=== PATIENT | male | born 1985 | race Caucasian/White ===

== ENCOUNTER 2016-05-05 10:15 | Emergency (ER) | payer OTHER ==
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
[2016-05-05] MEDS ORDERED: LIDOCAINE 5% (700 MG) TRANSDERMAL ADH..PATCH TP ONE (10:51)
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
[2016-05-05 11:37] VITALS: BP 132/81
== END 2016-05-05 11:26 | disposition home or self-care (01) ==
LOC: ER 10:15
DX: M79.1 Myalgia (principal); M54.9 Dorsalgia, unspecified; M54.2 Cervicalgia; V49.40XA Driver injured in collision with unspecified motor vehicles in traffic accident, initial encounter; Y92.481 Parking lot as the place of occurrence of the external cause
CPT/HCPCS: 99283

== ENCOUNTER 2016-07-21 11:02 | Emergency (ER) | payer OTHER ==
--- NOTE | 2016-07-21 13:33 | ER Document Report ---
ED General - General Mode of Arrival: Ambulatory Information source: Patient TRAVEL OUTSIDE OF THE [place] IN LAST 30 DAYS: No <AMBER HARRIS - Last Filed: 07/21/16 15:23> <ESTRELLA VELAZQUEZ - Last Filed: 07/31/16 11:09> - General Chief Complaint: Diarrhea Stated Complaint: WEAKNESS/ABDOMINAL PAIN Time Seen by Provider: 07/21/16 13:26 Notes: Patient is a 31-year-old male who presents to the emergency department today with complaints of feeling dehydrated. 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 Patient states he has consumed 1 Pedialyte and 3 Gatorades over the last 2 days. States he does not drink much water at work. Patient also complains of a headache which he states resolved in triage after eating a tuna sub. (AMBER HARRIS) - Related Data Allergies/Adverse Reactions: No Known Allergies Allergy (Verified 07/21/16 11:08) Past Medical History - General Information source: Patient - Social History Smoking Status: Current Every Day Smoker Cigarette use (# per day): Yes Frequency of alcohol use: None Drug Abuse: None Lives with: Family Family History: Reviewed & Not Pertinent Patient has suicidal ideation: No Patient has homicidal ideation: No Pulmonary Medical History: Reports: Hx Asthma GI Medical History: Reports: Hx Gastritis Surgical Hx: Negative - Immunizations Hx Diphtheria, Pertussis, Tetanus Vaccination: Yes <AMBER HARRIS - Last Filed: 07/21/16 15:23> Review of Systems - Review of Systems Constitutional: See HPI, Other - "Hot but not sweating", possible dehydration EENT: No symptoms reported Cardiovascular: No symptoms reported Respiratory: No symptoms reported Gastrointestinal: See HPI, Diarrhea. denies: Vomiting Genitourinary: No symptoms reported Male Genitourinary: No symptoms reported Musculoskeletal: No symptoms reported Skin: No symptoms reported Hematologic/Lymphatic: No symptoms reported Neurological/Psychological: See HPI, Headaches - resolved after eating tuna sub -: Yes All other systems reviewed and negative <AMBER HARRIS - Last Filed: 07/21/16 15:23> Physical Exam <AMBER HARRIS - Last Filed: 07/21/16 15:23> <ESTRELLA VELAZQUEZ - Last Filed: 07/31/16 11:09> - Vital signs Vitals: Pulse Resp BP Pulse Ox 63 16 120/65 99 07/21/16 15:07 07/21/16 15:07 07/21/16 15:07 07/21/16 15:07 - Notes Notes: Physical Exam: General: Alert, appears well. HEENT: Normocephalic. Atraumatic. PERRL. Extraocular movements intact. Oropharynx clear. Neck: Supple. Non-tender. Respiratory: No respiratory distress. Clear and equal breath sounds bilaterally. Cardiovascular: Regular rate and rhythm. Abdominal: Normal Inspection. Non-tender. No distension. Normal Bowel Sounds. Back: Non-tender. No deformity or step off. Extremities: Moves all four extremities. Upper extremities: Normal inspection. Normal ROM. Lower extremities: Normal inspection. No edema. Normal ROM. Neurological: Normal cognition. AAOx4. Normal speech. Psychological: Normal affect. Normal Mood. Skin: Warm. Dry. Normal color. (AMBER HARRIS) Course - Laboratory Result Diagrams: 07/21/16 13:40 <AMBER HARRIS - Last Filed: 07/21/16 15:23> - Laboratory Result Diagrams: 07/21/16 13:40 <ESTRELLA VELAZQUEZ - Last Filed: 07/31/16 11:09> - Re-evaluation Re-evalutation: 07/21/16 14:39 Presents emergency department chief complaint of heat is bothering him. He started new job where he works outside. He has not been drinking enough water he feels tired and fatigued no headache blurred vision double vision syncope chest pain or shortness of breath well-appearing nontoxic in no acute distress not acutely dehydrated tolerating oral fluids electrolytes are fine. He can be discharged home work excuse for today back to work tomorrow drink plenty of fluids 16-18 glasses of water a day and discussed building up a tolerance level for him. Again the family doctor follow-up and discussions regarding reasons for ED return sooner (ESTRELLA VELAZQUEZ) - Vital Signs Vital signs: Temp Pulse Resp BP Pulse Ox 63 16 120/65 99 07/21/16 15:07 07/21/16 15:07 07/21/16 15:07 07/21/16 15:07 - Laboratory Laboratory results interpreted by me: 07/21/16 13:40 Carbon Dioxide 31 H Discharge <AMBER HARRIS - Last Filed: 07/21/16 15:23> <ESTRELLA VELAZQUEZ - Last Filed: 07/31/16 11:09> - Discharge Clinical Impression: heat exhaustion Condition: Stable Disposition: HOME, SELF-CARE Additional Instructions: Heat Exhaustion You have had an episode of heat exhaustion. The body overheats when sweating fails to keep the temperature down due to high humidity, exercise, or dehydration. Typical symptoms may include muscle cramps, dizziness, nausea, and even chilling. You should rest and drink plenty of fluids. Do not resume any activities until you feel fully back to normal. To prevent a recurrence, avoid working in the heat. Always drink plenty of fluids when the weather is hot, particularly if you will be exercising. Use extra caution when the humidity is high. If you feel symptoms of heat illness, douse yourself with cold water and rest in the shade. Call the doctor if you develop confusion, repeated vomiting, severe headache, severe muscle spasms, fever, chest pain or shortness of breath. Forms: Return to Work Referrals: [facility] [Provider Group] - Follow up in 3-5 days Scribe Attestation: 07/21/16 14:39 I personally performed the services described in the documentation, reviewed and edited the documentation which was dictated to my scribe in my presence, and it accurately records my words and actions. (ESTRELLA VELAZQUEZ) Scribe Documentation - Scribe Written by Humphrey:: Humphrey Strong, 07/21/16 1528 acting as scribe for :: Orville <AMBER HARRIS - Last Filed: 07/21/16 15:23>
[2016-07-21 14:08] LABS: ANION GAP 13 (5-19); BLOOD UREA NITROGEN 17 mg/dL (7-20); CALCIUM 9.7 mg/dL (8.4-10.2); CARBON DIOXIDE 31 mmol/L (22-30); CHLORIDE 99 mmol/L (98-107); CREATININE RESULT 0.97 mg/dL (0.52-1.25); GLUCOSE 84 mg/dL (75-110); POTASSIUM 4.1 mmol/L (3.6-5.0); SODIUM 143.1 mmol/L (137-145)
[2016-07-21 15:19] VITALS: BP 120/65
== END 2016-07-21 15:07 | disposition home or self-care (01) ==
LOC: ER 11:02
DX: T67.5XXA Heat exhaustion, unspecified, initial encounter (principal); R10.9 Unspecified abdominal pain; R19.7 Diarrhea, unspecified; R53.1 Weakness; X30.XXXA Exposure to excessive natural heat, initial encounter; Y99.0 Civilian activity done for income or pay; F17.210 Nicotine dependence, cigarettes, uncomplicated
CPT/HCPCS: 36415; 80048; 99284

== ENCOUNTER 2017-08-09 16:03 | Emergency (ER) | payer SELFPAY ==
[2017-08-09] MEDS ORDERED: DIPH/PERTUSS(ACELL)/TETANUS VAC/PF 0.5 ML SYR (>=10YO) IM ONE (16:50)
[2017-08-09] MEDS ORDERED: OXYCODONE-ACETAMINOPHEN 5-325 MG TABLET PO ONE (16:50)
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
--- NOTE | 2017-08-09 17:30 | RADIOLOGY REPORT (SQ) ---
EXAM DESCRIPTION: FINGER RIGHT COMPLETED DATE/TIME: 08/09/2017 5:18 pm REASON FOR STUDY: right 3rd finger crush injury COMPARISON: None. NUMBER OF VIEWS: Three views. TECHNIQUE: AP, lateral, and oblique images acquired of the right third finger. LIMITATIONS: None. FINDINGS: MINERALIZATION: Normal. BONES: No acute fracture or dislocation. No worrisome bone lesions. SOFT TISSUES: Soft tissue swelling. No foreign body. OTHER: No other significant finding. IMPRESSION: SOFT TISSUE SWELLING WITHOUT FRACTURE. COMMENT: SITE OF TRAUMA/COMPLAINT MARKED/STAMP COMPLETED: YES. TECHNICAL DOCUMENTATION: JOB ID: [id number] [employer]- All Rights Reserved Reading location - IP/workstation name: [email or web address]
[2017-08-09 17:55] VITALS: BP 114/70
== END 2017-08-09 17:58 | disposition home or self-care (01) ==
LOC: ER 16:03 → MERGE 16:03 → ER 17:58
DX: S67.192A Crushing injury of right middle finger, initial encounter (principal); S61.212A Laceration without foreign body of right middle finger without damage to nail, initial encounter; W22.8XXA Striking against or struck by other objects, initial encounter; F17.200 Nicotine dependence, unspecified, uncomplicated
CPT/HCPCS: 90471; 90715; 99283

== ENCOUNTER 2017-08-15 10:27 | Emergency (ER) | payer OTHER ==
[2017-08-15] MEDS ORDERED: KETOROLAC TROMETHAMINE INJ/PF 30 MG/1 ML SDV IV ONE (10:48)
[2017-08-15] MEDS ORDERED: METOCLOPRAMIDE HCL INJ/PF 10 MG/2 ML SDV IV ONE (10:48)
[2017-08-15] MEDS ORDERED: MORPHINE SULFATE 10 MG/ML INJ IV ONE ×2 (10:48→12:04)
[2017-08-15] MEDS ORDERED: DIPHENHYDRAMINE HCL 50 MG/ML VIAL IV ONE (10:50)
[2017-08-15 11:18] LABS: ABSOLUTE BASOPHILS # (AUTO) 0.1 10^3/uL (0.0-0.2); ABSOLUTE EOSINOPHILS # (AUTO) 0.3 10^3/uL (0.0-0.6); ABSOLUTE LYMPHOCYTES (AUTO) 1.8 10^3/uL (0.5-4.7); ABSOLUTE MONOCYTES (AUTO) 0.8 10^3/uL (0.1-1.4); ABSOLUTE NEUT (AUTO) 7.4 10^3/uL (1.7-8.2); BASOPHILS % (AUTO) 0.6 % (0-2); EOSINOPHILS % (AUTO) 2.6 % (0-6); HEMATOCRIT 46.7 % (37.9-51.0); HEMOGLOBIN 15.8 g/dL (13.5-17.0); LYMPHOCYTES % (AUTO) 17.3 % (13-45); MEAN CORPUSCULAR HEMOGLOBIN 28.4 pg (27.0-33.4); MEAN CORPUSCULAR HGB CONC 33.8 g/dL (32.0-36.0); MEAN CORPUSCULAR VOLUME 84 fl (80-97); MONOCYTES % (AUTO) 8.1 % (3-13); PLATELET COUNT 209 10^3/uL (150-450); RED BLOOD COUNT 5.56 10^6/uL (4.35-5.55); RED CELL DISTRIBUTION WIDTH 14.3 % (11.5-14.0); SEGMENTED NEUTROPHILS % (AUTO) 71.4 % (42-78); TOTAL CELLS COUNTED % (AUTO) 100 %; WHITE BLOOD COUNT 10.3 10^3/uL (4.0-10.5)
--- NOTE | 2017-08-15 11:38 | RADIOLOGY REPORT (SQ) ---
EXAM DESCRIPTION: CT LTD RENAL STONE PROTOCOL ON COMPLETED DATE/TIME: 08/15/2017 11:26 am REASON FOR STUDY: right flank COMPARISON: Abdominal ultrasound 02/21/2015 TECHNIQUE: CT scan of the abdomen and pelvis performed without intravenous or oral contrast. Images reviewed with lung, soft tissue, and bone windows. Reconstructed coronal and sagittal MPR images revi ewed. All images stored on PACS. All CT scanners at this facility use dose modulation, iterative reconstruction, and/or weight based d osing when appropriate to reduce radiation dose to as low as reasonably achievable (ALARA). [facility]: Dose Right [facility]: CareDose [facility]: Dose Right [facility]: Teradose 4D [facility]: Smart F[employer]fix RADIATION DOSE: CT Rad equipment meets quality standard of care and radiation dose reduction techniq ues were employed. CTDIvol: 5.5 mGy. DLP: 310 mGy-cm.mGy. LIMITATIONS: None. FINDINGS: On the right side, a 2 mm distal right ureteral calculus is present at the ureteral orific e into the bladder. This is best shown on axial image 78 and coronal reconstruction image 35. Very mild right hydronephrosis and hydroureter. No other right-sided renal or ureteral stones. No right renal cysts or masses. LOWER CHEST: No significant findings. No nodules or infiltrates. NON-CONTRASTED LIVER, SPLEEN, ADRENALS: Evaluation limited by lack of IV contrast. No identified sign ificant masses. PANCREAS: No masses. No peripancreatic inflammatory changes. GALLBLADDER: No identified stones by CT criteria. No inflammatory changes to suggest cholecystitis. RIGHT KIDNEY AND URETER: As above LEFT KIDNEY AND URETER: No suspicious masses. Assessment limited by lack of IV contrast. Tiny left lower pole intrarenal nonobstructive less than 2 mm stone coronal image 38. No hydronephrosis or hy droureter. AORTA AND RETROPERITONEUM: No aneurysm. No retroperitoneal masses or adenopathy. BOWEL AND PERITONEAL CAVITY: No obvious masses or inflammatory changes. No free fluid. APPENDIX: Normal. PELVIS, BLADDER, AND ABDOMINAL WALL:No abnormal masses. No free fluid. 2 mm distal right ureteral st one at the ureterovesical junction. Bladder otherwise unremarkable. BONES: No significant findings. OTHER: No other significant finding. IMPRESSION: 2 mm distal right ureteral stone with minimal right hydronephrosis and hydroureter COMMENT: Quality ID # [id number]: Final reports with documentation of one or more dose reduction techniques (e.g., Automated exposure control, adjustment of the mA and/or kV according to patient size, use of iterative reconstruction technique) TECHNICAL DOCUMENTATION: JOB ID: [id number] + [employer]- All Rights Reserved Reading location - IP/workstation name: [email or web address] / [email or web address]
[2017-08-15 11:41] LABS: ANION GAP 12 (5-19); BLOOD UREA NITROGEN 18 mg/dL (7-20); CALCIUM 9.7 mg/dL (8.4-10.2); CARBON DIOXIDE 26 mmol/L (22-30); CHLORIDE 108 mmol/L (98-107); GLUCOSE 119 mg/dL (75-110); POTASSIUM 4.4 mmol/L (3.6-5.0); SODIUM 146.1 mmol/L (137-145)
[2017-08-15] MEDS: NORMAL SALINE 1000 ML 1,000 ML IV PRN ×2 (11:42→12:46)
[2017-08-15 12:05] LABS: AMORPHOUS SEDIMENT,URINE TRACE /HPF; APPEARANCE,URINE TURBID; BILIRUBIN,URINE NEGATIVE (NEGATIVE); COLOR,URINE YELLOW; GLUCOSE, URINE NEGATIVE (NEGATIVE); KETONES,URINE NEGATIVE (NEGATIVE); LEUKOCYTE ESTERASE,URINE NEGATIVE (NEGATIVE); NITRITE,URINE NEGATIVE (NEGATIVE); PROTEIN,URINE NEGATIVE (NEGATIVE); URINE SPECIFIC GRAVITY 1.027; UROBILINOGEN,URINE NEGATIVE mg/dL (<2.0)
[2017-08-15] MEDS ORDERED: TAMSULOSIN HCL 0.4 MG CAP.SR.24H PO ONE (12:11)
--- NOTE | 2017-08-15 12:21 | ER Document Report ---
ED General - General Chief Complaint: Flank Pain Stated Complaint: FLANK PAIN Time Seen by Provider: 08/15/17 10:44 TRAVEL OUTSIDE OF THE [place] IN LAST 30 DAYS: No - HPI Patient complains to provider of: Right flank pain Notes: Patient coming with acute onset of right flank pain. Patient has no history of kidney stones states that he was watching his when the pain became excruciating. Patient states nausea vomiting. Patient upon evaluation is rolling on room and had to get a comfortable position. Denies any fevers chills diarrhea at this time - Related Data Allergies/Adverse Reactions: No Known Allergies Allergy (Verified 08/15/17 10:30) Past Medical History - Social History Smoking Status: Current Every Day Smoker Chew tobacco use (# tins/day): No Frequency of alcohol use: None Drug Abuse: Marijuana Family History: Reviewed & Not Pertinent Patient has suicidal ideation: No Patient has homicidal ideation: No Pulmonary Medical History: Reports: Hx Asthma Renal/ Medical History: Denies: Hx Peritoneal Dialysis GI Medical History: Reports: Hx Gastritis - Immunizations Hx Diphtheria, Pertussis, Tetanus Vaccination: Yes Review of Systems - Review of Systems Constitutional: No symptoms reported EENT: No symptoms reported Cardiovascular: No symptoms reported Respiratory: No symptoms reported Gastrointestinal: No symptoms reported Genitourinary: Flank pain Male Genitourinary: No symptoms reported Musculoskeletal: No symptoms reported Skin: No symptoms reported Hematologic/Lymphatic: No symptoms reported Neurological/Psychological: No symptoms reported -: Yes All other systems reviewed and negative Physical Exam - Vital signs Vitals: Temp Pulse Resp BP Pulse Ox 98.6 F 50 L 26 H 129/83 H 99 08/15/17 10:32 08/15/17 10:32 08/15/17 10:32 08/15/17 10:32 08/15/17 10:32 Interpretation: Normal - General General appearance: Appears well, Alert - HEENT Head: Normocephalic, Atraumatic Eyes: Normal Pupils: PERRL - Respiratory Respiratory status: No respiratory distress Chest status: Nontender Breath sounds: Normal Chest palpation: Normal - Cardiovascular Rhythm: Regular Heart sounds: Normal auscultation Murmur: No - Abdominal Inspection: Normal Distension: No distension Bowel sounds: Normal Tenderness: Nontender Organomegaly: No organomegaly - Back Back: Normal, Nontender, CVA tenderness - Right - Extremities General upper extremity: Normal inspection, Nontender, Normal color, Normal ROM , Normal temperature General lower extremity: Normal inspection, Nontender, Normal color, Normal ROM , Normal temperature, Normal weight bearing. No: Fredi's sign - Neurological Neuro grossly intact: Yes Cognition: Normal Orientation: AAOx4 Mo Coma Scale Eye Opening: Spontaneous Mo Coma Scale Verbal: Oriented Mo Coma Scale Motor: Obeys Commands [place] Coma Scale Total: 15 Speech: Normal Motor strength normal: LUE, RUE, LLE, RLE Sensory: Normal - Psychological Associated symptoms: Normal affect, Normal mood - Skin Skin Temperature: Warm Skin Moisture: Dry Skin Color: Normal Course - Re-evaluation Re-evalutation: 08/15/17 12:15 Patient coming in for evaluation of right flank pain and was found to have a kidney stone 2 mm at the UVJ junction on the right side. Otherwise patient upon reevaluation resting in youth blankets still states he is in slight amount of pain. No dose of morphine will be given. Treatment for kidney stones was reviewed with the patient at bedside. Pictures of the CT scan showing the kidney stone or surgery. Patient will be discharged home - Vital Signs Vital signs: Temp Pulse Resp BP Pulse Ox 98.6 F 50 L 26 H 129/83 H 99 08/15/17 10:32 08/15/17 10:32 08/15/17 10:32 08/15/17 10:32 08/15/17 10:32 - Laboratory Result Diagrams: 08/15/17 10:55 08/15/17 10:55 Laboratory results interpreted by me: 08/15/17 08/15/17 10:55 10:55 RBC 5.56 H RDW 14.3 H Sodium 146.1 H Chloride 108 H Glucose 119 H Discharge - Discharge Clinical Impression: Right kidney stone Condition: Good Instructions: Kidney Stone ([facility]), Oral Narcotic Medication ([facility]), Flomax ([facility]) Additional Instructions: Follow-up with your primary care physician for further evaluation. Your CAT scan today shows a 2 mm kidney stone has causing her pain. Until he passed the stone he can expect to have a slight amount of pain. I highly recommend taking the Motrin prescribed for moderate pain I would also recommend taking 650 mg to 1000 mg of Tylenol every time he take the Motrin Take the oxycodone prescribed for severe pain Zofran for nausea Flomax possibly may aid in passage of the kidney stone however your stone is very small only 2 mm Flomax may be expensive depending on your insurance you do not need Flomax to pass your kidney stone. Please make sure you are drinking plenty of fluids to stay well-hydrated. Prescriptions: Ondansetron [Zofran Odt 4 mg Tablet] 4 mg PO Q4HP PRN #30 tab.rapdis PRN Reason: Ibuprofen [Motrin 600 mg Tablet] 600 mg PO Q8HP PRN #90 tablet PRN Reason: Oxycodone HCl 5 mg PO Q6 #30 tablet Tamsulosin HCl [Flomax 0.4 mg Cap.sr] 0.4 mg PO DAILY #7 cap.sr.24h Forms: Return to Work
[2017-08-15 13:29] VITALS: BP 112/66
== END 2017-08-15 13:30 | disposition home or self-care (01) ==
LOC: ER 10:27
DX: N13.2 Hydronephrosis with renal and ureteral calculous obstruction (principal); R11.2 Nausea with vomiting, unspecified; F17.200 Nicotine dependence, unspecified, uncomplicated; F12.10 Cannabis abuse, uncomplicated; J45.909 Unspecified asthma, uncomplicated
CPT/HCPCS: 96376; 99284; 96361; 96374; 96375; 36415; 85025; 80048; 81001; 76380; J1200; J1885; J2765; J2270; J7030

== ENCOUNTER 2018-07-16 16:52 | Emergency (ER) | payer SELFPAY ==
[2018-07-16 17:30] VITALS: BP 106/67
[2018-07-16] MEDS ORDERED: IBUPROFEN 800 MG TABLET PO ONE (18:00)
--- NOTE | 2018-07-16 18:00 | ER Document Report ---
HPI - HPI Time Seen by Provider: 07/16/18 17:29 Pain Level: 4 Context: Patient is a 33-year-old male presents to the emergency department with a chief complaint of a toothache for the past 2 days. He states that his tooth #16 has broken and he is able to pull out little slivers of his tooth. He has not seen a dentist and a long time. He states that he has had some sweating, lightheadedness, nausea, and cold sweats at home. He does admit to having a cough for the past week and a half. He is a current everyday smoker. - CONSTITUTIONAL Constitutional: DENIES: Fever, Chills - EENT EENT: DENIES: Sore Throat, Ear Pain, Eye problems - NEURO Neurology: DENIES: Headache, Weakness, Vision blurred, Dizzinesss / Vertigo - CARDIOVASCULAR Cardiovascular: DENIES: Chest pain - RESPIRATORY Respiratory: DENIES: Trouble Breathing, Coughing - GASTROINTESTINAL Gastrointestinal: DENIES: Abdominal Pain, Black / Bloody Stools - URINARY Urinary: DENIES: Dysuria, Urgency, Frequency - MUSCULOSKELETAL Musculoskeletal: DENIES: Extremity pain Past Medical History - Social History Smoking Status: Smoker,Current Status Unk Family History: Reviewed & Not Pertinent Patient has suicidal ideation: No Patient has homicidal ideation: No Pulmonary Medical History: Reports: Hx Asthma Renal/ Medical History: Denies: Hx Peritoneal Dialysis GI Medical History: Reports: Hx Gastritis - Immunizations Hx Diphtheria, Pertussis, Tetanus Vaccination: Yes Vertical Provider Document - CONSTITUTIONAL Agree With Documented VS: Yes Exam Limitations: No Limitations - INFECTION CONTROL TRAVEL OUTSIDE OF THE [place] IN LAST 30 DAYS: No - HEENT HEENT: Atraumatic, Normocephalic, PERRLA. negative: Pharyngeal Exudate, Pharyngeal Tenderness, Pharyngeal Erythema, Tympanic Membrane Red, Tympanic Membrane Bulging Mouth Diagram: 1 - Broken tooth noted - NECK Neck: Normal Inspection, Supple - RESPIRATORY Respiratory: Breath Sounds Normal, No Respiratory Distress, Rhonchi - Right lower lobe, Wheezing - Right lower lobe - CARDIOVASCULAR Cardiovascular: Regular Rate, Regular Rhythm Pulses: Normal: Radial - MUSCULOSKELETAL/EXTREMETIES Musculoskeletal/Extremeties: FROM, Non-Tender, No Edema - NEURO Level of Consciousness: Awake, Alert, Appropriate Motor/Sensory: No Motor Deficit, No Sensory Deficit - DERM Integumentary: Warm, Dry, No Rash Course - Re-evaluation Re-evalutation: 07/16/18 18:05 The patient does have coarse breath sounds noted to his right lower lobe and could possibly indicate pneumonia. He will be sent for chest x-ray. Patient's physical exam and history is most consistent with a infected tooth. Patient is able to swallow, no facial swelling noted, airways pain, vital signs are normal. I do not suspect Chirag's angina, peritonsilar abscess, or airway obstruction. The patient will be started on oral antibiotics. I have given the patient education on their antibiotics. Patient was given instructions to follow-up with a dentist this week. 07/16/18 19:20 Patient's chest x-ray is negative for any acute findings. This rules out pneumonia. I will give him an albuterol inhaler to go home with. I do not suspect patient is having a COPD exacerbation. He has been smoking since he was 16 years old, but has not been diagnosed with COPD. Verbal discharge i nstructions were given to the patient. They verbalized understanding. They are stable for discharge.Return precautions were given. Verbal discharge instructions were given. Patient verbalized understanding. Patient is stable for discharge. - Vital Signs Vital signs: Temp Pulse Resp BP Pulse Ox 98.2 F 94 16 106/67 96 07/16/18 17:18 07/16/18 17:18 07/16/18 17:18 07/16/18 17:18 07/16/18 17:18 Discharge - Discharge Clinical Impression: Toothache, Cough Condition: Stable Disposition: HOME, SELF-CARE Instructions: Penicillin V K ([facility]), Toothache ([facility]) Additional Instructions: You have been seen in the emergency department for a toothache. You may take ibuprofen 600 mg and Tylenol 1000 mg every 6 hours as needed for the pain. You have also been given topical lidocaine. Placed that to the affected tooth as needed to help with pain. You have also been prescribed antibiotics. Please take the antibiotics as prescribed, even if you start to feel better. If you develop a fever greater than 100.4 F, or have any symptoms that are worrisome to you, please return to the emergency department. Please follow-up with a dentist this week in regards to your visit. Is follow-up with [facility]. [facility]-[phone] You were also seen for a cough. Your x-ray is normal. Please continue to quit smoking. You have also been given an albuterol inhaler. Please take 1 to 2 puffs every 4-6 hours as needed for any shortness of breath. Prescriptions: Penicillin V Potassium [Penicillin Vk 500 mg Tablet] 500 mg PO BID #20 tablet Forms: Return to Work
[2018-07-16] MEDS ORDERED: LIDOCAINE 2% VISCOUS SOLN 20 ML UDCUP PO ONE (18:02)
--- NOTE | 2018-07-16 18:44 | RADIOLOGY REPORT (SQ) ---
EXAM DESCRIPTION: CHEST 2 VIEWS COMPLETED DATE/TIME: 07/16/2018 6:23 pm REASON FOR STUDY: cough x 1 1/2 weeks COMPARISON: 02/21/2015 EXAM PARAMETERS: NUMBER OF VIEWS: two views TECHNIQUE: Digital Frontal and Lateral radiographic views of the chest acquired. RADIATION DOSE: NA LIMITATIONS: none FINDINGS: LUNGS AND PLEURA: No opacities, masses or pneumothorax. No pleural effusion. MEDIASTINUM AND HILAR STRUCTURES: No masses or contour abnormalities. HEART AND VASCULAR STRUCTURES: Heart normal size. No evidence for failure. BONES: No acute findings. HARDWARE: None in the chest. OTHER: No other significant finding. IMPRESSION: NO ACUTE RADIOGRAPHIC FINDING IN THE CHEST. TECHNICAL DOCUMENTATION: JOB ID: [id number] [employer]- All Rights Reserved Reading location - IP/workstation name: [email or web address]
[2018-07-16] MEDS ORDERED: ALBUTEROL SULFATE HFA (90 MCG/PUFF) 8 GM MDI (1 MDI/ER DISP) IH PRN (19:20)
== END 2018-07-16 19:39 | disposition home or self-care (01) ==
LOC: ER 16:52
DX: K08.9 Disorder of teeth and supporting structures, unspecified (principal); R05 Cough; R61 Generalized hyperhidrosis; F17.200 Nicotine dependence, unspecified, uncomplicated
CPT/HCPCS: 99283; 71046; J3490 ×2

== ENCOUNTER 2019-05-16 09:49 | Emergency (ER) | payer SELFPAY ==
[2019-05-16] MEDS ORDERED: MUPIROCIN 2% OINTMENT 22 GM TP ONE (10:36)
[2019-05-16] MEDS ORDERED: HYDROCORTISONE 1% CREAM 28.35 GM TP ONE (10:36)
--- NOTE | 2019-05-16 10:40 | ER Document Report ---
HPI - HPI Time Seen by Provider: 05/16/19 10:29 Pain Level: 3 Notes: Patient is a 34-year-old male presenting to the emergency department chief complaint of dry flaking skin to his bilateral hands. 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 Patient reports the rash is itchy and burning. He states he is tried multiple [id number] creams and lotions for this with minimal relief. - CONSTITUTIONAL Constitutional: DENIES: Fever, Chills - MUSCULOSKELETAL Musculoskeletal: REPORTS: Extremity pain Past Medical History - General Information source: Patient - Social History Smoking Status: Never Smoker Frequency of alcohol use: None Drug Abuse: None Family History: Reviewed & Not Pertinent Patient has suicidal ideation: No Patient has homicidal ideation: No Pulmonary Medical History: Reports: Hx Asthma Renal/ Medical History: Denies: Hx Peritoneal Dialysis GI Medical History: Reports: Hx Gastritis - Immunizations Hx Diphtheria, Pertussis, Tetanus Vaccination: Yes Vertical Provider Document - CONSTITUTIONAL Notes: PHYSICAL EXAMINATION: GENERAL: Well-appearing, well-nourished and in no acute distress. HEAD: Atraumatic, normocephalic. EYES: Pupils equal round extraocular movements intact, conjunctiva are normal. ENT: Nares patent NECK: Normal range of motion LUNGS: No respiratory distress Musculoskeletal: Normal range of motion NEUROLOGICAL: Normal speech, normal gait. PSYCH: Normal mood, normal affect. SKIN: Dry flaky skin noted between fingers, small areas of erythema with scabbing noted. No induration or fluctuance. - INFECTION CONTROL TRAVEL OUTSIDE OF THE [place] IN LAST 30 DAYS: No Course - Re-evaluation Re-evalutation: Exam most consistent with eczema. Patient will be started on appropriate medications. - Vital Signs Vital signs: Temp Pulse Resp BP Pulse Ox 97.8 F 70 18 120/73 97 05/16/19 10:15 05/16/19 10:15 05/16/19 10:15 05/16/19 10:15 05/16/19 10:15 Discharge - Discharge Clinical Impression: Eczema Qualifiers: Eczema type: unspecified Qualified Code(s): L30.9 - Dermatitis, unspecified Condition: Stable Disposition: HOME, SELF-CARE Additional Instructions: PLEASE TAKE MEDICATIONS PRESCRIBED. APPLY TO THE HAND THREE TIME DAILY. KEEP CLEAN AND DRY. Prescriptions: Mupirocin [Bactroban 2% Ointment 22 gm] 1 applic TP TID #1 tube Hydrocortisone [Hydrocortisone 1% Ointment] 1 applic TP TID #1 tube
[2019-05-16 11:22] VITALS: BP 123/75
== END 2019-05-16 11:19 | disposition home or self-care (01) ==
LOC: ER 09:49
DX: L30.9 Dermatitis, unspecified (principal); R21 Rash and other nonspecific skin eruption; J45.909 Unspecified asthma, uncomplicated; M79.641 Pain in right hand; M79.642 Pain in left hand
CPT/HCPCS: 99283; J3490 ×2

== ENCOUNTER → 2019-09-04 | Outpatient (CLI) | payer SELFPAY ==
[2019-09-04 12:53] VITALS: BP 139/57
--- NOTE | 2019-09-04 12:53 | ER [facility] ASSESSMENT REPORT ---
Intake - In the Last 14 days Have you traveled outside [place]?: No Have you been in close contact with someone CONFIRMED: No Worked in Healthcare?: No - Symptoms Subjective Fever([place] feverish): Yes Chills: Yes Muscule Aches: Yes Runny Nose: Yes Shortness of breath: Yes Nausea or Vomiting: Yes Headache: Yes Abdominal Pain: Yes Diarrhea(3 or more loose stools in last 24 hours): Yes - Do you have any of the following Chronic lung disease: Asthma or emphysema or COPD: Yes Cystic Fibrosis: No Diabetes: No High Blood Pressure: No Cardiovascular Disease: No Chronic Kidney Disease: No Chronic Liver Disease: No Chronic blood disorder like Sickle Cell Disease: No Weak immune system due to disease or medication: No Neurologic condition that limits movement: No Developmental delay - Moderate to Severe: No Recent (within past 2 weeks) or current : No Morbid Obesity (>100 pounds over ideal weight): No - Objective Temperature: 97.2 F Pulse Rate: 80 Respiratory Rate: 16 Blood Pressure: 139/57 O2 Sat by Pulse Oximetry: 96 Objective: Given above, testing performed: If Testing Performed: Test Specimen Type Sent to General - General Information source: Patient Notes: Patient presents to the [facility] for screening for the coronavirus. Patient states that he has had symptoms for the past day including fever chills body aches and runny nose. Patient also reports shortness of breath nausea headache and abdominal pain. Patient does smoke cigarettes as well as marijuana and reports history of asthma - Related Data Allergies/Adverse Reactions: No Known Allergies Allergy (Verified 07/16/18 17:30) Past Medical History - General Information source: Patient - Social History Smoking Status: Current Every Day Smoker Drug Abuse: Marijuana Family History: Reviewed & Not Pertinent - Past Medical History Cardiac Medical History: Denies: Hx DVT, Hx Heart Attack, Hx Hypertension Pulmonary Medical History: Reports: Hx Asthma Endocrine Medical History: Denies: Hx Diabetes Mellitus Type 2 Renal/ Medical History: Denies: Hx Peritoneal Dialysis GI Medical History: Reports: Hx Gastritis Skin Medical History: Denies Hx Cellulitis, Denies Hx MRSA Surgical Hx: Negative Physical Exam - Notes Notes: Full physical exam could not be performed due to covid 19 isolation protocols. Constitutional: Nontoxic appearance, no acute distress Eyes: Nonicteric, extraocular movements intact, sclera clear Cardiovascular: Heart rate and rhythm regular, no JVD Respiratory: Scattered wheezing bilaterally, nonlabored breathing, no use of accessory muscles, no tachypnea Gastrointestinal: Abdomen not distended Muculoskeletal: Moves all extremities well Skin: Normal color Neuro: Awake alert oriented, normal speech Psych: Normal mood and affect Diagnostic Results Laboratory Results: The patient was evaluated during the global Covid 19 pandemic, and that diagnosis was suspected/considered upon their initial presentation. Their evaluation, treatment and testing was consistent with current guidelines for patients who present with complaints or symptoms that may be related to Covid 19. Patient presents with upper respiratory symptoms worrisome for possible Covid 19. Patient does not have emergency worrying symptoms such as difficulty breathing, chest pain, pressure, confusion or cyanosis. Patient appears suitable for discharge as they are not of an advanced age, do not have any chronic medical conditions such as diabetes, CAD, immune deficiency, or chronic kidney disease. Patient's vital signs are stable and patient is nontoxic in appearance. Good return precautions have been discussed with patient, patient verbalized understanding and is agreeable with discharge plan of care at this time. Patient Education/Counseling Counseling/Education: Patient was provided with discharge information including: As a person under investigation for Covid 19, the [place] department of Health and Human Services, division of public health advises you to adhere to the following guidance until your test results are reported to you. If your test result is positive, you will receive additional information from your provider and your local health department at that time. Remain at home until you are cleared by the health provider or public health authorities. Keep a log of visitors to your home, notify any visitors to your home of your isolation status. If you plan to move to a new address or leave the county, notify the local health department in your County. Call your doctor or seek care if you have an urgent medical need. Before seeking medical care, call ahead to get instructions from the provider before arriving at the medical office clinic or hospital. Notify them that you are being tested for the virus that causes Covid 19 so that arrangements can be made, as necessary, to prevent transmission to others in the healthcare setting. Next, notify the local health department in your county. If a medical emergency arises and you need to call 911, inform the first responders that you are being tested for the virus that causes Covid 19. Next, notify the local health department in your county. [facility] Discharge - Discharge Clinical Impression: Encounter for screening laboratory testing for COVID-19 virus, Wheezing Condition: Stable Disposition: Home; Selfcare
== END ==
LOC: RDC 12:06
PROVIDERS: ATTEND Nurse Practitioner Family
DX: Z20.828 Contact with and (suspected) exposure to other viral communicable diseases (principal); R50.9 Fever, unspecified; R06.02 Shortness of breath; M79.10 Myalgia, unspecified site; J45.909 Unspecified asthma, uncomplicated; R09.89 Other specified symptoms and signs involving the circulatory and respiratory systems; R11.0 Nausea; R51 Headache; R19.7 Diarrhea, unspecified; R10.9 Unspecified abdominal pain; F17.210 Nicotine dependence, cigarettes, uncomplicated; F12.90 Cannabis use, unspecified, uncomplicated
CPT/HCPCS: 87635; C9803; 99201; 99211

== ENCOUNTER 2019-12-24 01:29 | Emergency (ER) | payer SELFPAY ==
[2019-12-24 01:44] VITALS: BP 138/69
[2019-12-24] MEDS ORDERED: HYDROCODONE/ACETAMINOPHEN 5-325 MG (6 TAB/ER DISP) PO PRN (01:57)
--- NOTE | 2019-12-24 01:59 | ER Document Report ---
ED General - General Chief Complaint: Toothache Stated Complaint: TOOTHACHE Time Seen by Provider: 12/24/19 01:53 Mode of Arrival: Ambulatory Information source: Patient Notes: 34-year-old male with history of tobacco abuse coming in today with left lower jaw pain and ear pain. He has a broken off wisdom tooth on the left lower jaw. Is evidently tried multiple different [id number] remedies. Having extreme pain not able to sleep. No fevers or chills. Able to swallow and breathe without any difficulty. TRAVEL OUTSIDE OF THE [place] IN LAST 30 DAYS: No - Related Data Allergies/Adverse Reactions: No Known Allergies Allergy (Verified 07/16/18 17:30) Past Medical History - Social History Smoking Status: Current Every Day Smoker Family History: Reviewed & Not Pertinent - Past Medical History Cardiac Medical History: Denies: Hx DVT, Hx Heart Attack, Hx Hypertension Pulmonary Medical History: Reports: Hx Asthma Endocrine Medical History: Denies: Hx Diabetes Mellitus Type 2 Renal/ Medical History: Denies: Hx Peritoneal Dialysis GI Medical History: Reports: Hx Gastritis Skin Medical History: Denies Hx Cellulitis, Denies Hx MRSA - Immunizations Hx Diphtheria, Pertussis, Tetanus Vaccination: Yes Review of Systems - Review of Systems Notes: Constitutional: No fevers. No chills. EENT: No eye redness. No eye pain. No ear pain. No sore throat. Positive tooth ache Cardiovascular: No chest pain. No palpitations. Respiratory: No cough. No shortness of breath. No respiratory distress. Gastrointestinal: No abdominal pain. No nausea, vomiting, or diarrhea. Genitourinary: Atraumatic. No lesions. No pain. No discharge. Musculoskeletal: Atraumatic. No swelling. No deformities. Skin: No rash or lesions. Lymphatic: No swollen lymph nodes. Neurologic: No headache. No syncope. Psychiatric: No suicidal or homicidal ideation. Physical Exam - Vital signs Vitals: Temp Pulse Resp BP Pulse Ox 97.8 F 59 L 20 138/69 H 98 12/24/19 01:43 12/24/19 01:43 12/24/19 01:43 12/24/19 01:43 12/24/19 01:43 - Notes Notes: General: Well-developed, well-nourished. In no acute distress. Non-toxic appearing. Cardiac: Well-perfused. Regular rate and rhythm. No murmurs, rubs, or gallops. Pulmonary: No respiratory distress. No cyanosis. Bilateral lung fiels are clear to auscultation. Abdominal: Non-distended. Non-rigid. Bowels sounds are present in all four quadrants. No guarding or rebound. HEENT: Head is atraumatic. Conjunctivae not reddened. No tearing. PERRL. EOMI. Orbits atraumatic. No periorbital swelling or erythema. Oropharynx is without erythema, swelling, or exudates. Fracture with decay of the left lower wisdom tooth. No gingival abscess. No submandibular or sublingual swelling. No dysphonia dyspnea or dysphagia. No trismus Neck: Supple. No adenopathy. No meningismus. Dermatologic: Warm with good turgor. No rash. Atraumatic. Chest: Atraumatic. No chest wall tenderness to palpation. Musculoskeletal: Moves all extremities well. No range of motion deficits. no muscular or joint tenderness. No paraspinal muscle tenderness. no midline spinal tenderness or step-off. Genitourinary: Examination deferred Neurologic: No gross neurologic deficits. Psychiatric: Normal mood. Course - Vital Signs Vital signs: Temp Pulse Resp BP Pulse Ox 97.8 F 59 L 20 138/69 H 98 12/24/19 01:43 12/24/19 01:43 12/24/19 01:43 12/24/19 01:43 12/24/19 01:43 Discharge - Discharge Clinical Impression: Dental abscess, Elevated blood pressure reading, Tobacco abuse Condition: Good Disposition: HOME, SELF-CARE Instructions: [facility], Oral Narcotic Medication ([facility]), Toothache ([facility]) Prescriptions: Amoxicillin 875 mg PO BID 7 Days #14 tablet Forms: Smoking Cessation Education, Elevated Blood Pressure
== END 2019-12-24 02:05 | disposition home or self-care (01) ==
LOC: ER 01:29
DX: K04.7 Periapical abscess without sinus (principal); K02.9 Dental caries, unspecified; H92.09 Otalgia, unspecified ear; F17.200 Nicotine dependence, unspecified, uncomplicated; J45.909 Unspecified asthma, uncomplicated; R03.0 Elevated blood-pressure reading, without diagnosis of hypertension
CPT/HCPCS: 99284